=== PATIENT | male | born 1950 | race Caucasian/White ===

== ENCOUNTER → 2021-03-03 | Outpatient (CLI) | payer MEDICARE ==
[~2021-03-03] MED LIST: CEFTIN 250250 MG/TAB PO; CEPHALEXIN500 M1 PO; FLOMAX 0.40.4 MG/CAP PO; NAPROSYN500 MG PO; NORCO 325 MG-51 TAB PO; PERCOCET 325 MG1 TA2 PO
== END ==
LOC: COL.RAD 11:00
DX: N20.1 Calculus of ureter (principal)